=== PATIENT | female | born 1995 | race African-American/Black ===

== ENCOUNTER → 2016-10-05 | Outpatient (CLI) | payer MEDICAID ==
[~2016-10-05] MED LIST: AMOXICILLIN875 MG PO; DESOWEN0.05%; FLOVENT 220MCG7.9 GM IH; GLUCOPHAGE500 MG/TAB PO; NORCO 325 MG-51 TAB PO; PREDNISONE20 MG PO; PROAIR HFA0.09 MG/AC IH; PROTOP 0.03% 30GM TP; RT ADVAIR 228 DISKUS IH; TRIAMCINOLONE A15 G3 TP; ZITHROMAX 250M250 MG PO; ZYRTEC 10MG10 MG PO
== END ==
LOC: ZCOL.LAB 15:21
DX: L73.2 Hidradenitis suppurativa (principal)